=== PATIENT | male | born 1965 | race Caucasian/White ===

== ENCOUNTER 2021-04-04 17:14 | Emergency (ER) | payer SELFPAY ==
--- NOTE | 2021-04-04 18:08 | RAD REPORT ---
EXAM DESCRIPTION: CT - Abdomen Pelvis Wo Contrast - 04/04/2021 5:41 pm CLINICAL HISTORY: evaluate hernia COMPARISON: No comparisons TECHNIQUE: Axial [address] imaging of the abdomen and pelvis was performed without IV contrast. No IV contrast was given because of allergy, abnormal renal function, patient refusal or physician re quest. No oral contrast administered. All CT scans are performed using dose optimization technique as appropriate and may include automated exposure control or mA/KV adjustment according to patient size. FINDINGS: No suspicious findings in the lung bases. The liver, spleen and pancreas show no suspicious findings on non-contrast imaging. Multiple gallston es are identified. No biliary tree dilatation. No hydronephrosis or suspicious renal mass. Exophytic cysts are present in both kidneys. No significa nt adrenal finding. Isodense renal masses and pyelonephritis cannot be excluded in the absence of IV contrast. The urinary bladder is without significant finding. No gastric dilatation or wall thickening. No dilated small bowel loops. No obstructed or dilated colo n. Diverticulosis is minimal. No diverticulitis findings. No free air, free fluid or inflammatory st randing. No mass or bulky lymphadenopathy. Patient has a small 12-13 mm fat only umbilical hernia. Bilateral fat filled inguinal hernias are pre sent larger on the left. Short segment of the proximal sigmoid colon extends into the origin of the l eft inguinal hernia. There is minimal congestion in the herniated fat. There is questionable short-se gment wall thickening and edema of the sigmoid colon just proximal to the herniation. No suspicious bony findings. L5-S1 degenerative disc disease is present with L5 pars interarticulari s defects. IMPRESSION: Fat filled left inguinal hernia is present or recurrent with a short segment of the prox imal sigmoid colon extending 1-2 cm into the origin of the inguinal hernia. Colon wall is minimally t hickened and there is some minimal congestion or edema in the surrounding fat. Patient has a right inguinal hernia and a minimal umbilical hernia that have no acute components. Full assessment is limited is the absence of IV contrast.
--- NOTE | 2021-04-04 18:17 | ER ---
Nurse's Notes [facility] Name: Yaya Rocha Age: 55 yrs Sex: Male : 1965 Arrival Date: 04/04/2021 Time: 17:17 Bed 12 Private MD: Diagnosis: Unilateral inguinal hernia, without obstruction or gangrene Presentation: 04/04 17:24 Chief complaint: Patient states: Coughed yesterday. States L inguinal hernia repair ll1 "broke free" of mesh. States he can reduce it himself, but it pops right back out. Was sent by [facility] for further eval. Coronavirus screen: Vaccine status: Patient reports receiving the 2nd dose of the covid vaccine. Client denies travel out of the [place] in the last 14 days. At this time, the client does not indicate any symptoms associated with coronavirus-19. Ebola Screen: Patient denies travel to an Ebola-affected area in the 21 days before illness onset. Initial Sepsis Screen: Does the patient meet any 2 criteria? No. Patient's initial sepsis screen is negative. Does the patient have a suspected source of infection? Yes: Other: testes swelling. Risk Assessment: Do you want to hurt yourself or someone else? Patient reports no desire to harm self or others. Onset of symptoms was April 03, 2021. 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 - Social history:: Smoking status: Patient denies any tobacco usage or history of. Screenin:27 Abuse screen: Denies threats or abuse. Denies injuries from another. Nutritional ld1 screening: No deficits noted. Tuberculosis screening: No symptoms or risk factors identified. Fall Risk None identified. Assessment: 17:27 General: Appears in no apparent distress. comfortable, Behavior is calm, cooperative, ld1 appropriate for age. Pain: Denies pain. Neuro: Level of Consciousness is awake, alert, obeys commands, Oriented to person, place, time, situation. Cardiovascular: Capillary refill < 3 seconds Patient's skin is warm and dry. Respiratory: Airway is patent Respiratory effort is even, unlabored, Respiratory pattern is regular, symmetrical. GI: Abdomen is flat, non-distended. : No signs and/or symptoms were reported regarding the genitourinary system. EENT: No signs and/or symptoms were reported regarding the EENT system. Derm: Reports Having hernia repair, coughed yesterday and the mesh broke. Musculoskeletal: No deficits noted. Vital Signs: 17:24 BP 119 / 79; Pulse 72; Resp 16; Temp 97.3; Pulse Ox 95% ; Weight 81.65 kg; Height 5 ft. ll1 9 in. (175.26 cm); Pain 3/10; 17:24 Body Mass Index 26.58 (81.65 kg, 175.26 cm) ll1 ED Course: 17:17 Patient arrived in ED. as 17:18 Clementina To FNP-C is [facility]. kb 17:18 Abigail Villanueva MD is Attending Physician. kb 17:20 Arleth Hawley, LORI is Primary Nurse. ld1 17:24 Arm band placed on Patient placed in an exam room, on a stretcher. ll1 17:26 Triage completed. ll1 17:27 Patient has correct armband on for positive identification. Bed in low position. Call ld1 light in reach. Side rails up X2. Pulse ox on. NIBP on. Door closed. Noise minimized. Warm blanket given. 17:27 No provider procedures requiring assistance completed. ld1 17:41 CT Abd/Pelvis - Without Contrast In Process Unspecified. EDMS 18:20 Patient did not have IV access during this emergency room visit. ld1 Administered Medications: No medications were administered Outcome: 18:16 Discharge ordered by . kb 18:20 Discharged to home ambulatory. ld1 18:20 Condition: stable 18:20 Discharge instructions given to patient, Instructed on discharge instructions, follow up and referral plans. Demonstrated understanding of instructions, follow-up care. 18:20 Patient left the ED. ld1 Signatures: Dispatcher [employer] EDNC Clementina To FNP-C FNP-Ckb Martinez, Amelia as Lewis, Lynsay, RN RN ll1 Dibbern, Arleth, RN RN ld1
--- NOTE | 2021-04-04 18:17 | EDPHYS ---
Physician Documentation [facility] Name: Yaya Rocha Age: 55 yrs Sex: Male : 1965 Arrival Date: 04/04/2021 Time: 17:17 Bed 12 Private MD: ED Physician Abigail Villanueva HPI: 04/04 18:14 This 55 yrs old Male presents to ER via Ambulatory with complaints of kb inguinal hernia. 18:14 The patient presents with abdominal pain inguinal hernia. Onset: The symptoms/episode kb began/occurred yesterday. The symptoms do not radiate. Associated signs and symptoms: none. The symptoms are described as intermittent. Modifying factors: The symptoms are alleviated by nothing, the symptoms are aggravated by nothing. The patient has experienced similar episodes in the past. The patient has not recently seen a physician. Pt states he has an inguinal hernia that he had repaired with mesh. States the mesh failed yesterday and the hernia protruded out like it did prior to surgery. States it doesn't cause any problems or pain, but he just wanted to get it looked at. States he is able to push it back in without difficulyt. 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 - Social history:: Smoking status: Patient denies any tobacco usage or history of. ROS: 18:14 Constitutional: Negative for fever, chills, and weight loss. kb 18:14 Abdomen/GI: Positive for hernia. 18:14 All other systems are negative. Exam: 18:13 Constitutional: This is a well developed, well nourished patient who is awake, alert, kb and in no acute distress. Head/Face: Normocephalic, atraumatic. ENT: Moist Mucous membranes Cardiovascular: Regular rate and rhythm with a normal S1 and S2. No gallops, murmurs, or rubs. No pulse deficits. Respiratory: Respirations even and unlabored. No increased work of breathing, no retractions or nasal flaring. Abdomen/GI: Soft, non-tender. No distention Skin: Warm, dry with normal turgor. Normal color. MS/ Extremity: Pulses equal, no cyanosis. Neurovascular intact. Full, normal range of motion. Neuro: Awake and alert, GCS 15, oriented to person, place, time, and situation. Moves all extremities. Normal gait. Psych: Awake, alert, with orientation to person, place and time. Behavior, mood, and affect are within normal limits. 18:13 Abdomen/GI: Hernia: noted in the left inguinal area, easily reducible, no pain or tenderness . Vital Signs: 17:24 BP 119 / 79; Pulse 72; Resp 16; Temp 97.3; Pulse Ox 95% ; Weight 81.65 kg; Height 5 ft. ll1 9 in. (175.26 cm); Pain 3/10; 17:24 Body Mass Index 26.58 (81.65 kg, 175.26 cm) ll1 MDM: 17:19 Patient medically screened. kb 18:13 Data reviewed: vital signs, nurses notes. Data interpreted: Pulse oximetry: on room air kb is 95 %. Interpretation: normal. Counseling: I had a detailed discussion with the patient and/or guardian regarding: the historical points, exam findings, and any diagnostic results supporting the discharge/admit diagnosis, radiology results, the need for outpatient follow up, a general surgeon, to return to the emergency department if symptoms worsen or persist or if there are any questions or concerns that arise at home. ED course: Pt denies any pain or tenderness to hernia. Hernia is easily reduced. Pt will follow up with surgeon. 18:18 ED course: Pt educated to return for any pain, fever, inability to reduce hernia. kb 04/04 17:21 Order name: CT Abd/Pelvis - Without Contrast; Complete Time: 18:10 kb Administered Medications: No medications were administered Disposition Summary: 04/04/21 18:16 Discharge Ordered Location: Home kb Condition: Stable kb Diagnosis - Unilateral inguinal hernia, without obstruction or gangrene kb Followup: kb - With: Emergency Department - When: As needed - Reason: Worsening of condition Followup: kb - With: Private Physician - When: 2 - 3 days - Reason: Recheck today's complaints, Continuance of care, Re-evaluation by your physician Discharge Instructions: - Discharge Summary Sheet kb - Inguinal Hernia, Adult, [id number] kb Forms: - Medication Reconciliation Form kb - Thank You Letter kb - Antibiotic Education kb - Prescription Opioid Use kb Addendum: 04/07/2021 22:59 Co-signature as Attending Physician, Abigail Villanueva MD. m a2 Signatures: Dispatcher [employer] Clementina Sparks, [employer] TECHNICIAN-C [employer] TECHNICIAN-Ckb Abigail Villanueva MD MD ma2 Felicia Winchester RN RN ll1
[2021-04-04 18:42] VITALS: BP 119/79; TEMP 97.3; O2SAT 95
== END 2021-04-04 18:20 | disposition home or self-care (01) ==
LOC: ER 17:14
DX: K40.90 Unilateral inguinal hernia, without obstruction or gangrene, not specified as recurrent (principal); Z88.2 Allergy status to sulfonamides; Z88.5 Allergy status to narcotic agent
CPT/HCPCS: 74176; 99283

== ENCOUNTER 2021-04-21 11:54 | Emergency (ER) | payer SELFPAY ==
--- OUTSIDE RECORDS SUMMARY | 2021-04-21 11:58 | XMS REPORT | Continuity of Care Document ---
:1965 Author Organization [facility] t Address [address] [place] [address] Care Team Providers Name Role Phone MARIA FERNANDA Attending Clinician Unavailable Henrique KHANNA Attending Clinician Unavailable Mian SANTANA Attending Clinician Unavailable Anuel VELÁSQUEZ Attending Clinician Unavailable Anuel LÓPEZ Attending Clinician Unavailable CHANELL Attending Clinician Unavailable Mian ROTH Attending Clinician Unavailable Gillian HIGGINBOTHAM Attending Clinician Unavailable Anuel MEJÍA Attending Clinician Unavailable Anuel HUDDLESTON Attending Clinician Unavailable LEN Attending Clinician Unavailable Payers Payer Name Policy Type Policy Number Effective Date Expiration Date S ource FINANCIAL [id number] 2020 ASSISTANCE 00:00:00 [facility] [id number] 2022 PLANNING INDIGENT 00:00:00 00:00:00 Problems This patient has no known problems. Allergies, Adverse Reactions, Alerts Allergy Allergy Status Severity Reaction(s) Onset Inactive Treating Comm ents Source Name Type Date Date Clinician Sulfa DA Active U 2018-06 [facility] ([facility] 06[facility] [place] [facility] e [facility]iot [facility] morphine DA Active [place] 2018-06 [facility] 06-29 [place] [facility] e [facility] Sulfa DA Active U 2018-06 [facility] ([facility] 06-20 [place] 00:00: e Antibiot 00 [facility] morphine DA Active [place] 2018-06 [facility] 06-20 [place] 00:[facility]: e 00 [facility] No Known DA Active U 2018-06 [facility] Allergie 0[facility]03 [place] [facility] 00:[facility] d 00 [facility] Sulfa DA Active U 2018-06 [facility] ([facility]ulfona 0-03 [place] 00:00: e Antibiot 00 [facility] morphine DA Active [place] 2018- [facility] 0-03 [facility] 00:00: e 00 Medical Center Medications This patient has no known medications. Procedures This patient has no known procedures. Encounters Start End Encounter Admission Attending Care Care Encounter Source Date/Time Date/Time Type Type Clinicians Facility Department ID 2020-11-13 Outpatient [facility] [id number] [facility] 21:17:56 2021-03-31 2021-03-31 [facility] [id number] [place] 00:00:00 00:00:00 [facility] 2021-03-21 2021-03-21 [facility] [id number] [place] 14:20:06 15:01:02 NISA [facility] 2021-03-16 2021-03-16 Emergency E [facility] [id number] 11:22:00 11:22:00 l [facility] 2021-03-10 2021-03-12 [facility] [id number] [place] 13:02:26 01:03:09 [facility] 2021-03-11 2021-03-11 Outpatient 3 [facility] [id number] [place] 09:56:36 10:05:21 [facility] 2021-03-11 2021-03-11 [facility] [id number] [place] 09:56:36 10:05:21 [facility] 2021-03-11 2021-03-11 [facility] [id number] [place] 00:00:00 00:00:00 [facility] 2021-03-11 2021-03-11 [facility] [id number] [place] 00:00:00 00:00:00 [facility] 2021-03-03 2021-03-03 Emergency [facility] [id number] [place] 14:51:00 19:32:00 [facility] 2021-03-03 2021-03-03 Emergency 1 [facility] [id number] [place] 14:51:00 14:51:00 [facility] 2020-12-04 2020-12-04 Emergency CHANELL, [facility] [id number] [place] 02:12:00 02:16:00 NOEL [facility] 2020-12-03 2020-12-03 Emergency [facility] [id number] [place] 23:32:50 23:48:07 Health 2020-11-13 2020-11-19 Inpatient [facility] [id number] [place] 01:00:00 23:00:00 [facility] 2020-11-07 2020-11-07 Emergency E [facility] [id number] [facility] 13:10:00 13:10:00 2020-10-07 2020-10-07 [facility] [id number] [place] 09:16:47 09:36:25 [facility] 2020-09-05 2020-09-05 Emergency GISSELL HIGGINBOTHAM [facility] MED [id number] [place] 09:22:00 15:27:00 [facility] 2020-09-03 2020-09-03 Outpatient [facility] [id number] [place] 14:14:32 14:14:32 Health 2020-08-06 2020-08-06 [facility] [id number] [place] 14:42:27 14:59:48 [facility] 2020-07-26 2020-07-26 Emergency MARICE HUDDLESTON [facility] MED [id number] [place] 00:49:00 02:54:00 [facility] 2020-07-04 2020-07-04 Emergency [facility] MED [id number] [place] 10:47:00 16:03:00 [facility] 2020-07-04 2020-07-04 Emergency [facility] [id number] [place] 11:50:22 12:00:19 Health 2019-09-18 2019-09-18 Emergency [facility] [id number] [place] 19:48:23 19:48:23 Health 2019-09-18 2019-09-18 Emergency [facility] [id number] [place] 17:32:27 17:32:27 Health 2019-08-23 2019-08-23 Outpatient [facility] [id number] [place] 14:31:43 14:31:43 Health 2019-08-18 2019-08-18 Outpatient [facility] [id number] [place] 07:47:07 07:47:07 Health 2019-08-16 2019-08-16 Outpatient [facility] [id number] [place] 12:32:19 12:32:19 Health 2019-08-08 2019-08-08 Outpatient [facility] [id number] [place] 00:00:00 00:00:00 Health 2019-07-21 2019-07-21 Outpatient [facility] [id number] [place] 11:29:34 11:29:34 Health 2019-07-08 2019-07-08 Outpatient E [facility] [id number] [facility] 22:02:00 22:02:00 2019-04-01 2019-04-01 Emergency E [facility] [id number] [facility] 10:23:00 10:23:00 2018-10-20 2018-10-20 Emergency E [facility] [id number] [facility] 17:47:00 17:47:00 Results Test Description Test Time Test Comments Results Result Comments Source RPR Ser-Titr 2021-03-12 10:28:42 Test Item Value Reference Range Interpretation Comme nts T pallidum Ab Ser Ql Aggl (test code = 78748-3) NEGATIVE Negati ve, Equivocal Reagin+T pallidum IgG+IgM SerPl-Imp (test code = NEGATIVE Negat alexis 13338-7) HIV 1+2 Ab+HIV1 p24 Ag SerPl Ql [id number] 19:46:49 Test Item Value Reference Range Interpretation Comments HIV 1+2 Ab+HIV1 p24 Ag SerPl Ql IA NEGATIVE Negative (test code = 33109-0) HIV 1+2 Ab+HIV1 p24 Ag SerPl Ql [id number] 15:28:10 Test Item Value Reference Range Interpretation Comments HIV 1+2 Ab+HIV1 p24 Ag SerPl Ql IA NEGATIVE Negative (test code = 60301-4) - XR HAND 3 + V [id number] 09:22:00 FAX: Carolin Balderrama [phone] [place]: [address] St: REG FAX: Kaylin Schmidt Name: ESTEVAN MEJIA [facility] : 1965 Age/S: 54/M L[place] Romo Unit #: [id number] Loc: [place] [address] Phys: Katie Schmidt NP Acct: [id number] Dis Date: Status: REG ER PHONE #: [phone] Exam Date: 04/29/2019 0912 FAX #: [phone] Reason: pain and swelling EXAMS: CPT CODE: [id number] XR HAND 3 + V LT [address] EXAM: Left hand, 3 views painful swelling and redness; INFORMATION: Trauma; FINDINGS: Normal shape and structure of the imaged bones; no evidence of fracture or dislocation; Soft tissue swelling along the dorsum of the hand and wrist; no evidence of radiopaque foreign bodies. IMPRESSION: No evidence of acute osseous trauma. No radiopaque foreign body. Location code: [facility] at 0922 Reported and signed by: Niles Green M.D. CC: Carolin Gregorio DMD; Katie Schmidt NP Technologist: Alvin LAMB(R) Trnscrd Date/Time/By: 04/29/2019 (921) : By: [email or web address] Orig Print D/T: S: 04/29/2019 (924) PAGE 1 Signed ReportSTREPTOCOCCUS PCR [id number] 17:04:00 Test Item Value Reference Range Interpretation Comments STREPTOCOCCUS DYSGALACTIAE NEGATIVE FOR G/C NEGATIVE (test code = STREPGC) STREPA MOLECULAR (test NEGATIVE FOR GRP A NEGATIVE code = STREPAMOL) - XR CHEST 2 [id number] 10:39:00 FAX: Orin Higgins NP [place]: [address] St: REG FAX: Sunny Bruno MD [phone] Name: ESTEVAN MEJIA [facility] : 1965 Age/S: 54/M [address] Unit #: [id number] Loc: [place] [address] Phys: Orin Higgins NP Acct: Corey [id number] Dis Date: Status: REG ER PHONE #: [phone] Exam Date: 04/20/2019 1031 FAX #: [phone] Reason: cough and congestion EXAMS: CPT CODE: [id number] XR CHEST 2 V [id number] HISTORY: Cough and congestion. COMPARISON: None available Location: [facility]. AP and lateral view of the chest: No acute infiltrates, effusion or congestion. Cardiac and the mediastinal silhouette are normal. Old fracture from to the posterior lateral right fourth rib. IMPRESSION: No acute infiltrates, effusion or congestion. at 1039 Reported and signed by: Mike Jade M.D. CC: Orin Higgins NP; Sunny Bruno MD Technologist: Lucy Celaya RT(R)(CT) Trnscrd Date/Time/By: 04/20/2019 (1034) : By: [email or web address] Orig Print D/T: S: 04/20/2019 (3665) PAGE 1 Signed Report
[2021-04-21] MEDS ORDERED: GLUCAGON 1 MG/VIAL ONE (12:19)
--- NOTE | 2021-04-21 14:31 | EDPHYS ---
Physician Documentation [facility] Name: Yaya Rocha Age: 56 yrs Sex: Male : 1965 Arrival Date: 04/21/2021 Time: 11:57 Bed 7 Private MD: ED Physician Mitul Feldman HPI: 04/21 12:27 This 56 yrs old Male presents to ER via EMS with complaints of pill stuck in rn esophagus. 12:27 The patient presents with a foreign body sensation in the throat. The patient describes rn throat pain as raw. Onset: The symptoms/episode began/occurred 30 minute(s) ago. Severity of symptoms: At their worst the symptoms were mild, in the emergency department the symptoms are unchanged. Modifying factors: The symptoms are alleviated by nothing, the symptoms are aggravated by fluids, swallowing. Associated signs and symptoms: Pertinent positives: dysphagia, Pertinent negatives fever, shortness of breath. The patient has experienced similar episodes in the past, a few times. The patient has not recently seen a physician. Pt reports taking motrin, first pill went down fine, second one feels like stuck in esophagus. Reports has happened before with food and required scope. Also has had strictures and required dilation in past. . Historical: - Allergies: 12:01 Morphine; as6 12:01 Sulfa (Sulfonamide Antibiotics); as6 - PMHx: 12:01 neck cancer; as6 12:39 papillary CA; ll3 - PSHx: 12:01 feeding tube-removal; hernia repair; Thyroidectomy; lymphadenectomy; as6 - Immunization history:: Adult Immunizations up to date. - Social history:: Smoking status: Patient denies any tobacco usage or history of. - Family history:: not pertinent. - Hospitalizations: : No recent hospitalization is reported. ROS: 12:27 Constitutional: Negative for fever, chills, and weight loss, Eyes: Negative for injury, rn pain, redness, and discharge, ENT: + foreign body sensation in throat Abdomen/GI: Negative for abdominal pain, nausea, vomiting, diarrhea, and constipation, MS/Extremity: Negative for injury and deformity, Skin: Negative for injury, rash, and discoloration, Neuro: Negative for headache, weakness, numbness, tingling, and seizure. Exam: 12:27 Constitutional: This is a well developed, well nourished patient who is awake, alert, rn and in no acute distress. Clears throat several times. Head/Face: Normocephalic, atraumatic. ENT: NO stridor, handling secretions well Vital Signs: 11:57 BP 119 / 87; Pulse 103; Resp 22 S; Temp 99.5(TE); Pulse Ox 98% on R/A; Weight 81.65 kg as6 (R); Height 5 ft. 9 in. (175.26 cm) (R); Pain 0/10; 12:40 BP 131 / 97; Pulse 83; Resp 15; Pulse Ox 95% ; jl7 13:42 BP 117 / 85; Pulse 80; Resp 16; Pulse Ox 97% ; jl7 11:57 Body Mass Index 26.58 (81.65 kg, 175.26 cm) as6 MDM: 12:01 Patient medically screened. rn 14:28 Differential diagnosis: Pill esophagitis, foreign body in esophagus, esophageal rn stricture. Data reviewed: vital signs, nurses notes, and as a result, I will discharge patient. Counseling: I had a detailed discussion with the patient and/or guardian regarding: the historical points, exam findings, and any diagnostic results supporting the discharge/admit diagnosis, the need for outpatient follow up, to return to the emergency department if symptoms worsen or persist or if there are any questions or concerns that arise at home. Response to treatment: the patient's symptoms have markedly improved after treatment, the patient's condition has returned to base line, the patient is now symptom free, and as a result, I will discharge patient. Special discussion: I discussed with the patient/guardian in detail that at this point there is no indication for admission to the hospital. It is understood, however, that if the symptoms persist or worsen the patient needs to return immediately for re-evaluation. ED course: Following fluid challenge and glucagon. Now asymptomatic and will discharge home with return precautions and GI follow-up.. 04/21 12:12 Order name: IV Start; Complete Time: 12:14 rn Administered Medications: 12:26 Drug: Glucagon 1 mg Route: IVP; Site: left antecubital; ll3 13:00 Follow up: Response: No adverse reaction ll3 Disposition Summary: 04/21/21 14:30 Discharge Ordered Location: Home rn Problem: new rn Symptoms: have improved rn Condition: Stable rn Diagnosis - Foreign body in esophagus - Pill rn Followup: rn - With: Private Physician - When: As needed - Reason: Recheck today's complaints, Re-evaluation by your physician Discharge Instructions: - Discharge Summary Sheet rn - Esophagitis rn - Gastroesophageal Reflux Disease, Adult rn - Swallowed Foreign Body, Adult rn Forms: - Medication Reconciliation Form rn - Thank You Letter rn - 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
--- NOTE | 2021-04-21 14:31 | ER ---
Nurse's Notes [facility] Name: Yaya Rocha Age: 56 yrs Sex: Male : 1965 Arrival Date: 04/21/2021 Time: 11:57 Bed 7 Private MD: Diagnosis: Foreign body in esophagus-Pill Presentation: 04/21 11:57 Chief complaint: Patient states: pt states he was taking Motrin and feels like the pill as6 is stuck in this throat and can't get it down, pt is gagging and spitting up. Coronavirus screen: Vaccine status: Patient reports receiving the 2nd dose of the covid vaccine. Ebola Screen: Patient negative for fever greater than or equal to 101.5 degrees Fahrenheit, and additional compatible Ebola Virus Disease symptoms Patient denies exposure to infectious person. Patient denies travel to an Ebola-affected area in the 21 days before illness onset. Initial Sepsis Screen: Does the patient meet any 2 criteria? No. Patient's initial sepsis screen is negative. Does the patient have a suspected source of infection? No. Patient's initial sepsis screen is negative. Risk Assessment: Do you want to hurt yourself or someone else? Patient reports no desire to harm self or others. Onset of symptoms was April 21, 2021. 11:57 Method Of Arrival: EMS: [facility] as6 11:57 Acuity: GHAZALA 3 as6 Historical: - Allergies: 12:01 Morphine; as6 12:01 Sulfa (Sulfonamide Antibiotics); as6 - PMHx: 12:01 neck cancer; as6 12:39 papillary CA; ll3 - PSHx: 12:01 feeding tube-removal; hernia repair; Thyroidectomy; lymphadenectomy; as6 - Immunization history:: Adult Immunizations up to date. - Social history:: Smoking status: Patient denies any tobacco usage or history of. - Family history:: not pertinent. - Hospitalizations: : No recent hospitalization is reported. Screenin:35 Abuse screen: Denies threats or abuse. Nutritional screening: No deficits noted. ll3 Tuberculosis screening: No symptoms or risk factors identified. Fall Risk IV access (20 points). Gait- Normal/Bed Rest/Wheelchair (0 pts). Assessment: 12:35 General: Appears in no apparent distress. uncomfortable, slender, Behavior is calm, ll3 cooperative, anxious. Pain: Denies pain. Neuro: Level of Consciousness is awake, alert, obeys commands, Oriented to person, place, time, situation, Speech is normal, Facial symmetry appears normal. Cardiovascular: No deficits noted. Cardiovascular: Patient's skin is warm and dry. Respiratory: No deficits noted. Airway is patent Trachea midline Respiratory effort is even, unlabored, Respiratory pattern is regular, symmetrical. GI: Abdomen is flat, round Pt is actively vomiting clear fluid, Reports vomiting, since pt states he was swallowing an ibuprofen tablet and it got stuck in his throat, started about 20 minutes ago. : No deficits noted. Derm: No deficits noted. Skin is intact, is healthy with good turgor, Skin is pink, warm \T\ dry. Musculoskeletal: No deficits noted. Range of motion: intact in all extremities. 13:30 Reassessment: Pt reports no change in condition. jl7 14:20 Reassessment: Pt reports he swallowed the pill. ERP notified. jl7 Vital Signs: 11:57 BP 119 / 87; Pulse 103; Resp 22 S; Temp 99.5(TE); Pulse Ox 98% on R/A; Weight 81.65 kg as6 (R); Height 5 ft. 9 in. (175.26 cm) (R); Pain 0/10; 12:40 BP 131 / 97; Pulse 83; Resp 15; Pulse Ox 95% ; jl7 13:42 BP 117 / 85; Pulse 80; Resp 16; Pulse Ox 97% ; jl7 11:57 Body Mass Index 26.58 (81.65 kg, 175.26 cm) as6 ED Course: 11:57 Patient arrived in ED. as6 12:01 Mitul Feldman MD is Attending Physician. rn 12:01 Triage completed. as6 12:04 Arm band placed on. as6 12:14 Laly Sanabria, LORI is Primary Nurse. ll3 12:15 Inserted saline lock: 20 gauge in left antecubital area, using aseptic technique. ll3 12:35 Patient has correct armband on for positive identification. Placed in gown. Bed in low ll3 position. Call light in reach. Side rails up X 1. 14:43 No provider procedures requiring assistance completed. IV discontinued, intact, jl7 bleeding controlled, No redness/swelling at site. Pressure dressing applied. Administered Medications: 12:26 Drug: Glucagon 1 mg Route: IVP; Site: left antecubital; ll3 13:00 Follow up: Response: No adverse reaction ll3 Outcome: 14:30 Discharge ordered by . rn 14:43 Discharged to home ambulatory. jl7 14:43 Condition: stable 14:43 Discharge instructions given to patient, Instructed on discharge instructions, follow up and referral plans. Demonstrated understanding of instructions, follow-up care. 14:44 Patient left the ED. jl7 Signatures: Mitul Feldman MD MD rn Leal, Jahala RN RN jl7 Yanick Ceron RN RN as6 Laly Sanabria RN RN ll3 Corrections: (The following items were deleted from the chart) 12:06 11:57 Acuity: GHAZALA 4 as6 as6
[2021-04-21 15:35] VITALS: TEMP 99.5
[2021-04-21 15:38] VITALS: BP 117/85; O2SAT 97
== END 2021-04-21 14:44 | disposition home or self-care (01) ==
LOC: ER 11:54
DX: T18.198A Other foreign object in esophagus causing other injury, initial encounter (principal); Z88.2 Allergy status to sulfonamides; Z88.5 Allergy status to narcotic agent
CPT/HCPCS: 96374; 99283; J1610